=== PATIENT | male | born 1975 | race African-American/Black ===

== ENCOUNTER 2020-01-08 00:44 | Emergency (ER) | payer OTHER ==
[~2020-01-08] VITALS: Ht 182.9 cm; Wt 68.0 kg
[2020-01-08] MEDS ORDERED: DIPH,PERTUSS(ACELL),TET VAC/PF 0.5 ML SYRINGE. VAX IM ONE (01:30)
[2020-01-08] MEDS ORDERED: MORPHINE SULFATE 10 MG/ML VIAL. IV ONE ×2 (01:30→04:15)
[2020-01-08] MEDS ORDERED: BUPIVACAINE MPF 0.5% 30 ML VIAL. INJ ONE (02:15)
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
[2020-01-08] MEDS ORDERED: CHLO15MO2 PO (04:05)
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
[2020-01-08 04:50] VITALS: BP 126/79
== END 2020-01-08 04:50 | disposition home or self-care (01) ==
LOC: ER 00:44 → EEVIPCON 00:44 → ER 04:50
DX: S01.511A Laceration without foreign body of lip, initial encounter (principal); S00.11XA Contusion of right eyelid and periocular area, initial encounter; H11.31 Conjunctival hemorrhage, right eye; M50.921 Unspecified cervical disc disorder at C4-C5 level; R51.9 Headache, unspecified; K59.00 Constipation, unspecified; M51.36 Other intervertebral disc degeneration, lumbar region; Y08.89XA Assault by other specified means, initial encounter; Y93.89 Activity, other specified; Y92.148 Other place in prison as the place of occurrence of the external cause; Y99.8 Other external cause status
CPT/HCPCS: 12013; 70450; 70486; 71250; 72125; 74176; 90471; 90715; 96374; 96376; 99285; J2270; J3490